=== PATIENT | female | born 2000 | race Caucasian/White ===

== ENCOUNTER 2022-03-16 01:27 | Observation (INO) | payer BC, SELFPAY ==
[2022-03-16 01:36] VITALS: BP 134/80; PULSE 89; RESP 18; TEMP 36.7; O2SAT 100
[2022-03-16 01:45] VITALS: BMI 19.0
--- NOTE | 2022-03-16 01:58 | PC.NURSE ---
This patient, Anabelle Castillo, was admitted to Medical Room 346-01. Patient/family oriented to hospital policies and general routines including ID bracelet, bed and alarms, visiting hours, pain management, procedures, bathroom and other care routines, personal items, smoking policy, room service/diet, and visiting hours. Information on how to activate the Rapid Response Team has been discussed. Patient/Family are encouraged to report perceived risks to care and to ask questions if they do not understand what they are told or what they should do.
[2022-03-16] MEDS: LACTATED RINGERS 1,000 ML 100 ML IV CONT ×3 (03:59→21:07)
[2022-03-16 05:03] VITALS: BP 99/69; PULSE 85; RESP 16; TEMP 36.8; O2SAT 100
[2022-03-16 05:46] LABS: Hematocrit 34.6 % (37.0-47.0); Hemoglobin 11.3 g/dL (12.0-15.0); Mean Corpuscular HGB Conc 32.7 g/dl (32-36); Mean Corpuscular Hemoglobin 28.7 pg (26-34); Mean Corpuscular Volume 87.8 fl (80-100); Mean Platelet Volume 10.1 fl (7.4-10.4); Platelet Count Result 258 k/mm3 (150-375); Red Blood Count 3.94 M/mm3 (4.2-5.4); Red Cell Distribution Width 11.7 % (11.5-14.5); White Blood Count 5.5 K/mm3 (4.5-10.0)
[2022-03-16 06:02] LABS: Anion Gap 9 mmol/L (8-16); Blood Urea Nitrogen 6 mg/dL (8-21); Calcium 8.3 mg/dL (8.9-10.7); Carbon Dioxide 23 mmol/L (22-30); Chloride 106 mmol/L (98-107); Estimated CRCL calculation 73 ml/min; Estimated Glomerular Filt Rate > 60; Glucose 99 mg/dL (65-110); Potassium 3.8 mmol/L (3.4-5.0); Sodium 138 mmol/L (134-143)
[2022-03-16 09:53] LABS: Beta HCG Quantitative < 2.39 mIU/ML
--- NOTE | 2022-03-16 10:46 | PM.IMHP ---
H&P: HPI History of Present Illness Date/Time: 03/16/22 10:46 Chief Complaint: Fever Narrative: This is a 21-year-old female who is otherwise healthy and presented to the ER in [place] for evaluation of a fever last night. She first noticed generalized abdominal cramping last Tuesday, 6 days ago. She also had a few episodes of diarrhea throughout the day. No vomiting. The cramping was persistent throughout the day, and ultimately brought her into the ER that night. She reportedly had labs drawn, but no imaging. She was discharged home and told there was no significant findings in her labs. The abdominal cramping improved the next day and ultimately resolved. Since then, she has had no abdominal pain. Over the past 3 days, she has noticed an intermittent low-grade fever with a T-max of a 100? F. She has been taking ibuprofen, which helps. She has been feeling overall unwell, but no specific complaints. Denies any other additional symptoms. Due to the fever, she came back for evaluation to [place] ER last night. Labs were unremarkable. CT scan of the abdomen and pelvis was performed and showed findings consistent with possible early/mild acute appendicitis. In review of her paper chart, the radiologist report suggests her appendix being dilated to 8-9 mm with an appendicolith and the appendix distal to the appendicolith is fluid-filled. No mention of inflammatory stranding. No evidence of perforation. This does report that the appendix is difficult to see and is located in the deep pelvis. There was also mention of possible colitis in the ascending colon. Our service was called from the ED provider and she was directly admitted to [facility] for surgical evaluation. She has been started on IV Zosyn. She had a negative urine test in the ER at the outlying facility. She is now seen on the medical floor. She denies any abdominal pain. She reports a mild headache and has some intermittent nausea, but she deals with nausea chronically. No vomiting. She has been afebrile since admission. Review of Systems Review of Systems: All systems reviewed & are unremarkable except as noted in HPI and below Constitutional: Constitutional: Reports as per HPI, Reports no additional constitutional complaints, Reports chills, Denies fatigue, Reports fever(s), Reports headache(s) and Reports poor appetite Eyes: Eyes: Reports no additional eye complaints ENT: Reports system reviewed and no additional complaints, except as documented and Reports Normal hearing present Cardiovascular: Cardiovascular: Reports no additional cardiovascular complaints, Denies chest pain and Denies leg edema Respiratory: Respiratory: Reports no additional respiratory complaints, Denies cough and Denies dyspnea Gastrointestinal: Gastrointestinal: Reports as per HPI, Reports no additional gastrointestinal complaints, Denies abdominal pain (not currently), Denies change in stool character, Reports GI cramping, Denies diarrhea, Reports nausea (chronic, no changes) and Denies vomiting Genitourinary: Genitourinary: Reports no additional female genitourinary complaints and Denies dysuria Musculoskeletal: Musculoskeletal: Reports no additional musculoskeletal complaints Integumentary/Breasts: Skin/Breast: Reports system reviewed and no additional complaints, except as docu Neurologic: Reports system reviewed and no additional complaints, except as documented, Denies dizziness, Denies focal weakness, Denies numbness and Denies tingling Psychiatric: Psychiatric: Reports no additional psychiatric complaints, Denies depression (treated for depression with hx of SI, no current SI), Denies homicidal ideation and Denies suicidal ideation PMFSH Past Medical History Medical History Depression Surgical History Surgical History No pertinent past surgica
[2022-03-16 14:00] VITALS: BP 108/58; PULSE 91; RESP 18; TEMP 36.4; O2SAT 99
[2022-03-16] MEDS: FLUoxetine HCL 20 MG CAPSULE 60 MG PO (17:22)
[2022-03-16 19:34] VITALS: BP 123/64; PULSE 98; RESP 16; TEMP 36.6; O2SAT 100
[2022-03-16 20:00] VITALS: PULSE 98; RESP 16; O2SAT 100
[2022-03-17 06:00] VITALS: BP 115/67; PULSE 79; RESP 18; TEMP 36.6; O2SAT 100
[2022-03-17 06:19] LABS: Basophils Percent Auto 0.6 % (0.2-1.2); Eosinophils Absolute Auto 0.1 K/mm3 (0-0.3); Eosinophils Percent Auto 1.4 % (0-4.4); Hematocrit 37.1 % (37.0-47.0); Hemoglobin 11.8 g/dL (12.0-15.0); Immature Granulocyte Absolute 0.01 K/mm3 (0.00-0.031); Immature Granulocyte Percent A 0.2 % (0-0.5); Lymphocytes Absolute Auto 2.29 K/mm3 (0.9-3.2); Lymphocytes Percent Auto 45.8 % (18.3-44.2); Mean Corpuscular HGB Conc 31.8 g/dl (32-36); Mean Corpuscular Hemoglobin 28.4 pg (26-34); Mean Corpuscular Volume 89.4 fl (80-100); Mean Platelet Volume 10.5 fl (7.4-10.4); Monocytes Absolute Auto 0.4 K/mm3 (0.1-0.6); Monocytes Percent Auto 7.4 % (2.6-8.5); Neutrophils Absolute Auto 2.2 K/mm3 (1.3-6.7); Neutrophils Percent Auto 44.6 % (45.5-73.1); Platelet Count Result 286 k/mm3 (150-375); Red Blood Count 4.15 M/mm3 (4.2-5.4); Red Cell Distribution Width 11.9 % (11.5-14.5)
--- NOTE | 2022-03-17 08:55 | PM.DS ---
DS: Admitting Diagnosis Discharge Date 03/17/2022 Admitting Diagnosis acute appendicitis DS: Discharge Diagnosis Discharge Diagnosis (1) Colitis: Code(s): K52.9 - Noninfective gastroenteritis and colitis, unspecified Status: Acute DS: Summary Hospital Course Reason for hospitalization: possible acute appendicitis Hospital Course: this is a 21-year-old woman who presented to [place] emergency department on 03/15/2022. She had presented initially 1 week prior with lower abdominal pain and diarrhea. No imaging was done at that time and she was sent home from the emergency department with instructions to return if symptoms worsened or she developed fevers. She was having some mild fevers on 03/14/2022 and 03/15/2022 and therefore presented back to the emergency department. Her abdominal pain had resolved and she was no longer having diarrhea. A CT of her abdomen and pelvis was obtained and this showed a mildly dilated appendix and appendicolith with no surrounding inflammation. No surgeons were available at [facility] and she was unable to be transferred to [facility]. She was then transferred to [facility] for further treatment. The CT was reviewed with our radiologist and the findings were inconclusive for appendicitis. There was actually some mild ascending colon wall thickening which would go along with the pain and diarrhea patient was having. Her labs were repeated and white blood count remained normal. Her pain had completely resolved and she had no tenderness on palpation or peritoneal signs. Her diet was advanced to regular diet and she remained afebrile throughout her stay. Follow-up labs on 03/17/2022 showed no evidence of elevated white blood count or other abnormalities. She was discharged on 03/17/2022. Status at Discharge Functional status at discharge: independent ambulation Overall status at discharge: patient is back to baseline Time Spent with Patient Time attestation: Total time spent providing and/or coordinating discharge services: Time spent: Less than 30 minutes Exam Const: General: cooperative and no acute distress Orientation/consciousness: patient oriented x3 Resp: Effort & Inspection: normal respiratory effort Auscultation: clear to auscultation bilaterally Cardio: Rate: regular rate Rhythm: regular rhythm Heart sounds: S1 normal heart sound present and S2 normal heart sound present GI: Inspection: non-distended GI Palp: Yes Soft to palpation, No Tenderness to palpation present (GI), No Guarding due to palpation present (GI) and No Rebound tenderness present Auscultation: normal bowel sounds DS: Data Data Completed and Pending Labs on day of discharge: Labs from last 24 hours 03/17/22 03/16/22 05:55 05:34 WBC 5.0 RBC 4.15 L Hgb 11.8 L Hct 37.1 MCV 89.4 MCH 28.4 MCHC 31.8 L RDW 11.9 Plt Count 286 MPV 10.5 H Immature Gran % (Auto) 0.2 Neut % (Auto) 44.6 L Lymph % (Auto) 45.8 H [place] % (Auto) 7.4 Eos % (Auto) 1.4 Baso % (Auto) 0.6 Lymph # (Auto) 2.29 [place] # (Auto) 0.4 Eos # (Auto) 0.1 Baso # (Auto) 0.0 Abs Immat Gran (auto) 0.01 Absolute Neuts (auto) 2.2 Absolute Nucleated RBC 0.0 Nucleated RBC % 0.0 Beta HCG, Quant < 2.39 Discharge Plan Discharge Attending physician on discharge: Almas Hector Discharging Clinician: Almas Hector Anticipated Discharge Date/Time: 03/17/22 09:01 Patient Disposition: Home, Self-Care Activity: unlimited Diet: regular Patient Instructions: Antibiotic Form Stand Alone Forms: General Discharge Information Follow-up/Referrals: UNKNOWN,DOCTOR [Primary Care Provider] - Follow Up with Primary Dr ( Follow-up with primary care doctor) Discharge Medications: Continued fluoxetine 60 mg Tablet 60 mg PO DAILY Date of admission: 03/16/22 01:27 Primary Care Provider: UNKNOWN,DOCTOR Admitting Provider: Tawny
[2022-03-17] MEDS: FLUoxetine HCL 20 MG CAPSULE 60 MG PO (09:02)
== END 2022-03-17 14:15 | disposition home or self-care (01) ==
PROVIDERS: Anesthesiology; Nurse Practitioner Family; Admitting Provider Surgery; Visit Provider Surgery
DX: K52.9 Noninfective gastroenteritis and colitis, unspecified (principal); Z79.899 Other long term (current) drug therapy; F32.A Depression, unspecified
CPT/HCPCS: 36415; 80048; 84702; 85025; 85027; 96361; 96365; 96366; 96376; A9270; G0378; J2543; J7120

== ENCOUNTER 2023-05-25 07:04 | Emergency (ER) | payer OTHER, SELFPAY ==
[2023-05-25 07:13] VITALS: BP 101/69; PULSE 99; RESP 16; TEMP 37; O2SAT 99
[2023-05-25 08:13] LABS: Strep Group A RT-PCR NOT DETECTED (Negative)
[2023-05-25] MEDS: KETOROLAC 30 MG/ML VIAL (*BKC) IM (08:28)
[2023-05-25 08:59] LABS: Influenza A QL RT-PCR Negative (Negative); Influenza B QL RT-PCR Negative (Negative); SARS-CoV-2 RNA PCR Negative (Negative)
--- NOTE | 2023-05-25 09:50 | ED.URI ---
HPI - URI/Sore Throat General Chief Complaint: Upper Respiratory Infection Stated Complaint: Throat hurts and cannot swallow anymore Time Seen by Provider: 05/25/23 07:36 Source: patient and RN notes reviewed Mode of arrival: ambulatory Limitations: no limitations History of Present Illness HPI Narrative: This is a 22 year old female who presents for evaluation of sore throat. Patient states yesterday she developed painful swallowing. She took tylenol last night for her pain without relief. She denies fever, chills. She reports mild cough. She denies sick contacts. Related Data Home Medications Medication Instructions Recorded Confirmed fluoxetine 60 mg tablet 60 mg PO DAILY 03/16/22 03/16/22 Allergies Allergy/AdvReac Type Severity Reaction Status Date / Time bacitracin Allergy Rash Verified 05/25/23 07:15 [From Neosporin ([id number])] neomycin Allergy Rash Verified 05/25/23 07:15 [From Neosporin ([id number])] polymyxin B Allergy Rash Verified 05/25/23 07:15 [From Neosporin ([id number])] Review of Systems Review of Systems: All systems reviewed & are unremarkable except as noted in HPI and below PMFSH Past Medical History Medical History Depression Surgical History Surgical History No pertinent past surgical history Family History Family History Other No pertinent family history Social History Social History Smoking status: Never smoker Alcohol intake: never Substance use: former Occupation/Education: occupation Additional occupation/education comments: [employer] Spiritual care concerns: No Exam Const: General: no acute distress and alert Nutritional Appearance: well nourished Orientation/consciousness: patient oriented x3 HENMT: Head: normal to inspection Ears: external ears normal and TM's normal bilaterally Face/Nose/Sinus: Normal external nose present Face and sinus: normal facial exam and sinuses nontender Mouth: Yes lip normal and Yes moist mucous membranes Throat: uvula midline Other: mild edema and erythema to uvula Eyes: EOM: EOMs intact bilaterally Neck: Neck: lymphadenopathy Chest: Chest palpation & inspection: normal inspection of the chest Resp: Effort & Inspection: normal respiratory effort Auscultation: clear to auscultation bilaterally Cardio: Rate: regular rate Rhythm: regular rhythm Heart sounds: no murmurs GI: GI Palp: Yes Soft to palpation, No Tenderness to palpation present (GI), No Guarding due to palpation present (GI) and No Rigid due to palpation Auscultation: normal bowel sounds Skin: General skin exam: normal color Rashes: no rashes Wounds: no wounds Neuro: General: patient oriented x3, moves all extremities and CN's II-XI intact bilaterally Extrem: General: normal to inspection Psych: Mental Status: mental status grossly normal Affect: normal affect Attitude: cooperative Course Reevaluation(s) Reevaluation #1: I Discussed with patient that test are unremarkable. She will be treated for uvulitis. She was given dose of decadron in ER 10 mg IM and toradol 30 mg IM for pain. Date: 05/25/23 Time: 10:16 Vital Signs Vital signs: Vital Signs Temperature 98.6 F 05/25/23 07:13 Pulse Rate 99 05/25/23 07:13 Respiratory Rate 16 05/25/23 07:13 Blood Pressure 101/69 05/25/23 07:13 Pulse Oximetry 99 05/25/23 07:13 Temperature 98.6 F 05/25/23 07:13 Pulse Rate 99 05/25/23 07:13 Respiratory Rate 16 05/25/23 07:13 Blood Pressure 101/69 05/25/23 07:13 Pulse Oximetry 99 05/25/23 07:13 MDM - URI/Sore Throat Differential Diagnosis Differential diagnosis: Likely upper respiratory infection, viral infection, influenza, phary
[2023-05-25 10:07] LABS: Monoscreen Negative (Negative); Negative Monotest Control Negative (Negative); Positive Monotest Control Positive (Positive)
== END 2023-05-25 10:27 | disposition home or self-care (01) ==
PROVIDERS: Emergency Provider General Practice
DX: J02.9 Acute pharyngitis, unspecified (principal); Z20.822 Contact with and (suspected) exposure to COVID-19; F32.A Depression, unspecified
CPT/HCPCS: 36415; 86308; 87636; 87651; 96372; 99284; J1100; J1885

== ENCOUNTER 2024-07-14 17:41 | Observation (INO) | payer OTHER, SELFPAY ==
--- NOTE | ~2024-07-14 | US_ITS ---
EXAMINATION: US transvaginal DATE: 07/14/2024 22:33 INDICATION: Low abdominal pain. TECHNIQUE: Multiple transvaginal sonographic images of the pelvis were obtained. COMPARISON: CT abdomen and pelvis 07/14/2024 FINDINGS: The uterus measures 6.7 x 4.5 x 4.0 cm. There is physiologic free fluid in the pelvis. The endometria l complex measures 5 mm in thickness. The right ovary measures 4.0 x 2.5 x 2.7 cm. There is a 2.4 cm dominant follicle in the right ovary. The left ovary measures 2.8 x 1.9 x 2.2 cm. There is normal vas cular flow in the ovaries. IMPRESSION: 1. Normal pelvis. Reviewed, dictated and finalized at location A. ING DIE SINKER IMPRESSION: 1. Normal pelvis.
--- NOTE | ~2024-07-14 | CT_ITS ---
EXAMINATION: CT abdomen pelvis w con DATE: 07/14/2024 22:33 INDICATION: Generalized abdominal pain. TECHNIQUE: Computed tomography (CT) of the abdomen and pelvis was performed with 100 mL Omnipaque 350 intravenous contrast. Automated exposure control and iterative reconstruction technique were employe d. The dose-length product was 262.17 mGy-cm. COMPARISON: CT abdomen and pelvis 03/15/2022 FINDINGS: The visualized portions of the lung bases are clear without pneumonia or pleural effusion. The heart size is normal. No pericardial effusion. The liver, gallbladder, spleen, pancreas, adrenal glands, and kidneys are normal. There are no dilated loops of bowel. The appendix is fluid-filled and dilated to 11 mm. 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 There are no pathologically enla rged lymph nodes. There is no free intraperitoneal fluid. There is mild lumbar spondylosis. IMPRESSION: 1. Dilatation of the appendix to 11 mm, increased from 9 mm on 03/15/2022. This finding is suspicious f or appendicitis. Reviewed, dictated and finalized at location A. 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 Dilatation of the appendix to 11 mm, increased from 9 mm on 03/15/2022. This f inding is suspicious for appendicitis.
[2024-07-14 17:43] VITALS: BP 119/68; PULSE 82; RESP 17; TEMP 36.3; O2SAT 100
--- NOTE | 2024-07-14 21:03 | ED_ITS ---
HPI - Abdominal Pain General Chief Complaint: Abdominal Pain <KATIE Pereyra Last Filed: 07/15/24 01:05> Stated Complaint: abd pain <KATIE Pereyra Last Filed: 07/15/24 01:05> Time Seen by Provider: 07/14/24 20:57 <KATIE Pereyra Last Filed: 07/15/24 01:05> History of Present Illness HPI narrative: 23-year-old female presents to the emergency department for diffuse abdominal pain for 1 day. Patient states the pain started yesterday is persisted today which prompted her to come to the ED. She describes the pain as a cramp, more significant in the lower abdomen. She is unable to identify any aggravating or alleviating factors. She denies nausea vomiting, diarrhea, dysuria or hematuria. No prior abdominal surgeries. She does endorse a history of similar events but is never lasted this long. LMP 1 week ago. No prior abdominal surgeries. Deneis vaginal discharge or concern for STDs. <KATIE Pereyra Last Filed: 07/15/24 01:05> Related Data Home Medications: Home Medications Medication Instructions Recorded Confirmed fluoxetine 60 mg tablet 60 mg PO HS 03/16/22 07/15/24 metoprolol tartrate 25 mg tablet 25 mg PO BID 07/15/24 07/15/24 <KATIE Pereyra Last Filed: 07/15/24 01:05> Allergies/Adverse Reactions: Allergies Allergy/AdvReac Type Severity Reaction Status Date / Time bacitracin Allergy Rash Verified 07/14/24 17:43 [From Neosporin ([id number])] neomycin Allergy Rash Verified 07/14/24 17:43 [From Neosporin ([id number])] polymyxin B Allergy Rash Verified 07/14/24 17:43 [From Neosporin ([id number])] <KATIE Pereyra Last Filed: 07/15/24 01:05> Review of Systems Review of Systems: All systems reviewed & are unremarkable except as noted in HPI and below <KATIE Pereyra Last Filed: 07/15/24 01:05> PMFSH Past Medical History Medical History: Medical History Depression <Yris Carrasco PA-C - Last Filed: 07/15/24 01:05> Surgical History Surgical History: Surgical History No pertinent past surgical history <Yris Carrasco PA-C - Last Filed: 07/15/24 01:05> Family History Family History: Family History (Updated 07/15/24 @ 02:06 by Neptali Bugros RN) Sibling Diabetes mellitus Father Mary-Danlos disease <Yris Carrasco PA-C - Last Filed: 07/15/24 01:05> Social History Social History: Social History Smoking status: Never smoker Alcohol intake: never Substance use: never Do You Feel Safe in your Home?: Yes Lack of Transportation: No Lack of Food: Never True Current Housing: I Have Housing Concerned About Future Housing: No Difficulty Paying Gas/Electric Bills: No Difficulty Paying for Meds: No Currently Unemployed: No Education: High School Diploma/GED Difficulty w/ Childcare or Family Care: No Occupation/Education: occupation Additional occupation/education comments: [employer] Spiritual care concerns: No <Yris Carrasco PA-C - Last Filed: 07/15/24 01:05> Exam Narrative: GENERAL: Well-appearing, well-nourished, and in no acute distress. HEAD: Normocephalic, atraumatic. EYES: EOMI. ENT: Nares clear, no rhinorrhea or epistaxis. Mucous membranes moist. NECK: Supple. CHEST: Clear to auscultation. No respiratory distress. HEART: Regular rate and rhythm. No murmur heard. Normal peripheral pulses. ABDOMEN: Normoactive bowel sounds. Abdomen soft with diffuse tenderness, most notably in the left lower quadrant, right lower quadrant and suprapubic region. No rebound or rigidity. No CVA tenderness. EXTREMITIES: Normal range of motion. No edema. SKIN: Warm, dry, no rash. NEURO: Alert and oriented x3. <Yris Carrasco PA-C - Last Filed: 07/15/24 01:05> Course [employer]/PA Physician Supervision Patient's HPI, Exam, and MDM were reviewed and I agreed with the workup and disposition done in the emergency department by the MLP. I was available for consultation and did independently evaluate the patient and patient's imaging studies and concern for acute appendicitis based on her right lower quadrant abdominal examination. She remained hemodynamically stable here in the emergency department. General surgery was consulted and agreeable to admission at this time with IV antibiotics. Patient was re-evaluated frequently and remained stable here in the emergency department with improvement her pain after medications. Patient is agreeable for admission at this time. Please refer to MLP dictation for remaining care course. <Austin Odell MD - Last Filed: 07/15/24 07:21> Vital Signs Vital signs: Vital Signs Temperature 36.3 C L 07/14/24 17:43 Pulse Rate 82 07/14/24 17:43 Respiratory Rate 17 07/14/24 17:43 Blood Pressure 119/68 07/14/24 17:43 Pulse Oximetry 100 07/14/24 17:43 Oxygen Delivery Room Air 07/14/24 17:43 Temperature 36.8 C 07/15/24 06:09 Pulse Rate 78 07/15/24 06:09 Respiratory Rate 16 07/15/24 06:09 Blood Pressure 105/76 07/15/24 06:09 Pulse Oximetry 100 07/15/24 06:09 Oxygen Delivery Room Air 07/14/24 17:43 <Yris Carrasco PA-C - Last Filed: 07/15/24 01:05> Vital Signs Temperature 36.3 C L 07/14/24 17:43 Pulse Rate 82 07/14/24 17:43 Respiratory Rate 17 07/14/24 17:43 Blood Pressure 119/68 07/14/24 17:43 Pulse Oximetry 100 07/14/24 17:43 Oxygen Delivery Room Air 07/14/24 17:43 Temperature 36.8 C 07/15/24 06:09 Pulse Rate 78 07/15/24 06:09 Respiratory Rate 16 07/15/24 06:09 Blood Pressure 105/76 07/15/24 06:09 Pulse Oximetry 100 07/15/24 06:09 Oxygen Delivery Room Air 07/14/24 17:43 <Austin Odell MD - Last Filed: 07/15/24 07:21> MDM - Abdominal Pain MDM Narrative Medical decision making narrative: 23-year-old female presents emergency department for diffuse abdominal cramping for the past day. See HPI for further history. Triage vitals are stable. Patient is afebrile and well appearing on exam. She is resting comfortably in the exam bed. Exam is significant for normoactive bowel sounds and diffuse abdominal tenderness, most notably in the lower abdomen. CBC shows no leukocytosis or anemia. Chemistries are unremarkable. UA with trace ketones and 1+ bacteria, no wbc's or nitrates. Lipase is normal. is negative. pelvic ultrasound shows no evidence of ovarian torsion and no adnexal abnormality with small pelvic free fluid. There is a right ovarian 2.[address] abdomen pelvis shows a dilated appendix of 1.1 cm with mild periappendiceal of edema/ inflammation which may reflect early acute appendicitis. she received Toradol with improvement. Discussed case with surgeon on-call, Dr. Macedo, who agrees to admission to his service. Patient started on Zosyn in the ED and made NPO. She is agreeable to admission. <Yris Carrasco PA-C - Last Filed: 07/15/24 01:05> Medical Records Attestation: I reviewed the patient's medical records. <Austin Odell MD - Last Filed: 07/15/24 07:21> Lab Data Attestation: I reviewed the patient's lab results. <Austin Odell MD - Last Filed: 07/15/24 07:21> Result diagrams: 07/14/24 21:09 07/14/24 21:09 <Yris Carrasco PA-C - Last Filed: 07/15/24 01:05> Labs: Lab Results 07/14/24 Range/Units 21:09 WBC 9.9 (4.5-10.0) K/mm3 RBC 4.17 L (4.2-5.4) M/mm3 Hgb 12.4 (12.0-15.0) g/dL Hct 37.2 (37.0-47.0) % MCV 89.2 (80-100) fl MCH 29.7 (26-34) pg MCHC 33.3 (32-36) g/dl RDW 11.7 (11.5-14.5) % Plt Count 293 (150-375) k/mm3 MPV 10.2 (7.4-10.4) fl Immature Gran % (Auto) 0.2 (0-0.5) % Neut % (Auto) 73.5 H (45.5-73.1) % Lymph % (Auto) 18.9 (18.3-44.2) % [place] % (Auto) 6.3 (2.6-8.5) % Eos % (Auto) 0.7 (0-4.4) % Baso % (Auto) 0.4 (0.2-1.2) % Lymph # (Auto) 1.86 (0.9-3.2) K/mm3 [place] # (Auto) 0.6 (0.1-0.6) K/mm3 Eos # (Auto) 0.1 (0-0.3) K/mm3 Baso # (Auto) 0.0 (0.0-0.1) K/mm3 Abs Immat Gran (auto) 0.02 (0.00-0.031) K/mm3 Absolute Neuts (auto) 7.3 H (1.3-6.7) K/mm3 Absolute Nucleated RBC 0.000 (0.0-0.012) K/mm3 Nucleated RBC % 0.0 (0.0-0.2) % Sodium 139 (137-145) mmol/L Potassium 3.6 (3.4-5.0) mmol/L Chloride 105 (98-107) mmol/L Carbon Dioxide 27 (22-30) mmol/L Anion Gap 7 (4-12) mmol/L BUN 9 (7-17) mg/dL Creatinine 0.60 L (0.7-1.0) mg/dL Estim Creat Clear Calc 104 ml/min Estimated GFR > 60 (59 - ) Glucose 90 (65-110) mg/dL Calcium 9.0 (8.4-10.2) mg/dL Total Bilirubin 0.5 (0.2-1.3) mg/dL AST 26 (14-36) U/L ALT 27 (6-35) U/L Alkaline Phosphatase 85 (38-126) U/L Total Protein 8.0 (6.3-8.2) g/dL Albumin 4.8 (3.5-5.1) g/dL Lipase 47 (23-300) U/L Urine Color Yellow (Yellow) Urine Appearance Clear (Clear) Urine pH 6.5 (5.0-9.0) Ur Specific [place] 1.032 (1.001-1.035) Urine Protein Trace (Negative) mg/dL Urine Glucose (UA) Negative (Negative) mg/dL Urine Ketones Trace H (Negative) mg/dL Ur Blood (Man) Negative (Negative) Urine Nitrate Negative (Negative) Urine Bilirubin Negative (Negative) Urine Urobilinogen 1.0 (<2.0) mg/dL Leukocyte Esterase Rfl Negative (Negative) ANN/UL Urine RBC 0-2 (0-2) /hpf Urine WBC 0-5 (0-3) /hpf Ur Squamous Epith Cells Occasional (Few) /hpf Urine Bacteria 1+ H /hpf Urine Casts 0-2 Urine Test Negative <Yris Carrasco PA-C - Last Filed: 07/15/24 01:05> Lab Results 07/14/24 Range/Units 21:09 WBC 9.9 (4.5-10.0) K/mm3 RBC 4.17 L (4.2-5.4) M/mm3 Hgb 12.4 (12.0-15.0) g/dL Hct 37.2 (37.0-47.0) % MCV 89.2 (80-100) fl MCH 29.7 (26-34) pg MCHC 33.3 (32-36) g/dl RDW 11.7 (11.5-14.5) % Plt Count 293 (150-375) k/mm3 MPV 10.2 (7.4-10.4) fl Immature Gran % (Auto) 0.2 (0-0.5) % Neut % (Auto) 73.5 H (45.5-73.1) % Lymph % (Auto) 18.9 (18.3-44.2) % [place] % (Auto) 6.3 (2.6-8.5) % Eos % (Auto) 0.7 (0-4.4) % Baso % (Auto) 0.4 (0.2-1.2) % Lymph # (Auto) 1.86 (0.9-3.2) K/mm3 [place] # (Auto) 0.6 (0.1-0.6) K/mm3 Eos # (Auto) 0.1 (0-0.3) K/mm3 Baso # (Auto) 0.0 (0.0-0.1) K/mm3 Abs Immat Gran (auto) 0.02 (0.00-0.031) K/mm3 Absolute Neuts (auto) 7.3 H (1.3-6.7) K/mm3 Absolute Nucleated RBC 0.000 (0.0-0.012) K/mm3 Nucleated RBC % 0.0 (0.0-0.2) % Sodium 139 (137-145) mmol/L Potassium 3.6 (3.4-5.0) mmol/L Chloride 105 (98-107) mmol/L Carbon Dioxide 27 (22-30) mmol/L Anion Gap 7 (4-12) mmol/L BUN 9 (7-17) mg/dL Creatinine 0.60 L (0.7-1.0) mg/dL Estim Creat Clear Calc 104 ml/min Estimated GFR > 60 (59 - ) Glucose 90 (65-110) mg/dL Calcium 9.0 (8.4-10.2) mg/dL Total Bilirubin 0.5 (0.2-1.3) mg/dL AST 26 (14-36) U/L ALT 27 (6-35) U/L Alkaline Phosphatase 85 (38-126) U/L Total Protein 8.0 (6.3-8.2) g/dL Albumin 4.8 (3.5-5.1) g/dL Lipase 47 (23-300) U/L Urine Color Yellow (Yellow) Urine Appearance Clear (Clear) Urine pH 6.5 (5.0-9.0) Ur Specific [place] 1.032 (1.001-1.035) Urine Protein Trace (Negative) mg/dL Urine Glucose (UA) Negative (Negative) mg/dL Urine Ketones Trace H (Negative) mg/dL Ur Blood (Man) Negative (Negative) Urine Nitrate Negative (Negative) Urine Bilirubin Negative (Negative) Urine Urobilinogen 1.0 (<2.0) mg/dL Leukocyte Esterase Rfl Negative (Negative) ANN/UL Urine RBC 0-2 (0-2) /hpf Urine WBC 0-5 (0-3) /hpf Ur Squamous Epith Cells Occasional (Few) /hpf Urine Bacteria 1+ H /hpf Urine Casts 0-2 Urine Test Negative <Austin Odell MD - Last Filed: 07/15/24 07:21> Imaging Data Attestation: I personally reviewed and interpreted this imaging study as follows: <Austin Odell MD - Last Filed: 07/15/24 07:21> Discharge Plan Discharge Clinical Impression: Cyst of right ovary Acute appendicitis Qualifiers: Acute appendicitis type: unspecified acute appendicitis type Qualified Code(s): K35.80 - Unspecified acute appendicitis <Yris Carrasco PA-C - Last Filed: 07/15/24 01:05> Patient Disposition: Still a Patient <Yris Carrasco PA-C - Last Filed: 07/15/24 01:05> Condition: Stable <Yris Carrasco PA-C - Last Filed: 07/15/24 01:05>
[2024-07-14 21:21] LABS: Basophils Percent Auto 0.4 % (0.2-1.2); Eosinophils Absolute Auto 0.1 K/mm3 (0-0.3); Eosinophils Percent Auto 0.7 % (0-4.4); Hematocrit 37.2 % (37.0-47.0); Hemoglobin 12.4 g/dL (12.0-15.0); Immature Granulocyte Absolute 0.02 K/mm3 (0.00-0.031); Immature Granulocyte Percent A 0.2 % (0-0.5); Lymphocytes Absolute Auto 1.86 K/mm3 (0.9-3.2); Lymphocytes Percent Auto 18.9 % (18.3-44.2); Mean Corpuscular HGB Conc 33.3 g/dl (32-36); Mean Corpuscular Hemoglobin 29.7 pg (26-34); Mean Corpuscular Volume 89.2 fl (80-100); Mean Platelet Volume 10.2 fl (7.4-10.4); Monocytes Absolute Auto 0.6 K/mm3 (0.1-0.6); Monocytes Percent Auto 6.3 % (2.6-8.5); Neutrophils Absolute Auto 7.3 K/mm3 (1.3-6.7); Neutrophils Percent Auto 73.5 % (45.5-73.1); Platelet Count Result 293 k/mm3 (150-375); Red Blood Count 4.17 M/mm3 (4.2-5.4); Red Cell Distribution Width 11.7 % (11.5-14.5); White Blood Count 9.9 K/mm3 (4.5-10.0)
[2024-07-14 21:27] LABS: Add Urine Microscopic? YES; Appearance Urine Clear (Clear); Bacteria Urine 1+ /hpf; Bilirubin Urine Negative (Negative); Blood Urine Negative (Negative); Color Urine Yellow (Yellow); Glucose Urine UA Negative (Negative); Ketones Urine Trace mg/dL (Negative); Leukocyte Esterase Ur Negative LEU/UL (Negative); Nitrate Urine Negative (Negative); Non Pathogenic Casts 0-2; Protein Urine Trace mg/dL (Negative); RBC Urine 0-2 /hpf (0-2); Specific Grav Ur 1.032 (1.001-1.035); Squamous Epithelial Cell Urine Occasional /hpf (Few); WBC Urine 0-5 /hpf (0-3); pH Urine 6.5 (5.0-9.0)
--- NOTE | 2024-07-14 21:28 | PC.NURSE ---
order placed for Urine HCG, RN called Lab at this time.
[2024-07-14 21:34] LABS: Alanine Aminotransferase 27 U/L (6-35); Albumin Level 4.8 g/dL (3.5-5.1); Alkaline Phosphatase 85 U/L (38-126); Anion Gap 7 mmol/L (4-12); Aspartate Amino Transferase 26 U/L (14-36); Bilirubin,Total 0.5 mg/dL (0.2-1.3); Blood Urea Nitrogen 9 mg/dL (7-17); Carbon Dioxide 27 mmol/L (22-30); Chloride 105 mmol/L (98-107); Estimated CRCL calculation 104 ml/min; Estimated Glomerular Filt Rate > 60; Glucose 90 mg/dL (65-110); Lipase 47 U/L (23-300); Potassium 3.6 mmol/L (3.4-5.0); Sodium 139 mmol/L (137-145)
[2024-07-14 21:58] LABS: Pregnancy On Board Control Positive; Urine Pregnancy Test Negative
[2024-07-14] MEDS: KETOROLAC 15 MG/ML VIAL (*BKC) IV PUSH (23:50)
[2024-07-14 23:51] VITALS: BP 109/59; PULSE 91; RESP 13; O2SAT 100
[2024-07-15] VITALS (11 sets, daily range): BP systolic 88–116; BP diastolic 40–77; PULSE 78–115; RESP 9–18; TEMP 36–36.8; O2SAT 95–100; BMI 24.7
[2024-07-15] MEDS: SODIUM CHLORIDE 0.9% IV 1,000 ML 125 ML IV CONT (01:12)
[2024-07-15] MEDS: PIPERACILLN/TAZ 3.375GM/NS50ML 3.375 GM/50 ML BAG IVPB ×3 (01:13→12:15)
--- NOTE | 2024-07-15 01:20 | PC.NURSE ---
This patient is well developed and is being admitted to [facility] for inflammation around the appendix. Patient is receiving Piperacillin and Normal Saline at 125 ml/hr. Patient denies any pain at this time. Vitals are 116/77, HR 82, O2 100, RR 18.
[2024-07-15] MEDS: ACETAMINOPHEN 325 MG TABLET 650 MG PO (02:47)
--- NOTE | 2024-07-15 09:26 | PM.IMHP ---
H&P: HPI History of Present Illness Date/Time: 07/15/24 09:26 Chief Complaint: Acute appendicitis Narrative: Patient is a 23-year-old female presents to the emergency room last evening. Had pain in the lower abdomen the pelvis for about 1 to 2 days prior to presentation. Two years ago she was transferred from [facility] to [facility] was seen by Dr. Hector for similar type pain. At that time a CT scan showed a appendix which was minimally dilated with an appendicolith but no evidence of appendiceal inflammation. Apparently was also some very subtle changes of ascending colitis and she was treated medically for that condition and did not undergo an appendectomy. On this presentation CT scan again shows a dilated appendix with some periappendiceal inflammation but no abscess or perforation. An appendicolith is still seen in the appendix. White blood cell count is normal. She does have a right ovarian cyst. Review of Systems Review of Systems: The remainder of the review of systems to include constitutional, HEENT, cardiovascular, respiratory, GI, , integumentary, musculoskeletal, endocrine, immunologic, hematologic, psychiatric, and neurologic are all negative except for which is mentioned above in the HPI. [facility] Past Medical History Medical History Depression Surgical History Surgical History No pertinent past surgical history Family History Family History Sibling Diabetes mellitus Father Mary-Danlos disease Social History Social History Smoking status: Never smoker Alcohol intake: never Substance use: never Do You Feel Safe in your Home?: Yes Lack of Transportation: No Lack of Food: Never True Current Housing: I Have Housing Concerned About Future Housing: No Difficulty Paying Gas/Electric Bills: No Difficulty Paying for Meds: No Currently Unemployed: No Education: High School Diploma/GED Difficulty w/ Childcare or Family Care: No Occupation/Education: occupation Additional occupation/education comments: [employer] Spiritual care concerns: No Meds Home Medications and Allergies Home Medications Medication Instructions Recorded Confirmed Type fluoxetine 60 mg tablet 60 mg PO HS 03/16/22 07/15/24 History metoprolol tartrate 25 mg tablet 25 mg PO BID 07/15/24 07/15/24 History Allergies Allergy/AdvReac Type Severity Reaction Status Date / Time bacitracin Allergy Rash Verified 07/14/24 17:43 [From Neosporin ([id number])] neomycin Allergy Rash Verified 07/14/24 17:43 [From Neosporin ([id number])] polymyxin B Allergy Rash Verified 07/14/24 17:43 [From Neosporin ([id number])] Vital Signs Vital Signs - 24 hr 07/14/24 17:43 07/14/24 23:51 07/15/24 01:22 Temperature 36.3 C L Pulse Rate 82 91 87 Respiratory Rate 17 13 18 Blood Pressure 119/68 109/59 L 116/77 Pulse Oximetry 100 100 100 Oxygen Delivery Room Air 07/15/24 01:45 07/15/24 06:09 07/15/24 01:56 Temperature 36.8 C 36.8 C 36.8 C Pulse Rate 80 78 80 Respiratory Rate 16 16 16 Blood Pressure 109/74 105/76 109/74 Pulse Oximetry 100 100 Oxygen Delivery Exam Const: General: comfortable and no acute distress HENMT: Ears: TM's normal bilaterally Face/Nose/Sinus: Normal nares present Mouth: Yes moist mucous membranes Eyes: General: appearance normal, both eyes and all related structures Sclera: sclerae normal Pupils: Equal, round and reactive pupils present EOM: EOMs intact bilaterally Neck: Neck: supple and no JVD Resp: Effort & Inspection: normal respiratory effort Auscultation: clear to auscultation bilaterally Cardio: Rate: regular rate Rhythm: regular rhythm GI: Other: Abdomen is soft and nondistended. Minimal tenderness in the right lower quadrant the abdomen. Moderate tenderness to palpation in the suprapubic region. The appendix is seen in the mid pelvis on CT scan which would correlate with the tenderness on exam. No ventral hernias no masses. Skin: General skin exam: normal color and no rashes or lesions noted Neuro: General: gait normal Speech: normal speech Motor exam (neuro): 5/5 motor strength present throughout Sensory Exam: normal sensation Extrem: General: normal to inspection Psych: Mental Status: mental status grossly normal Affect: normal affect H&P: Results Labs Labs: Short CBC 07/14/24 Range/Units 21:09 WBC 9.9 (4.5-10.0) K/mm3 Hgb 12.4 (12.0-15.0) g/dL Hct 37.2 (37.0-47.0) % Plt Count 293 (150-375) k/mm3 BMP 07/14/24 21:09 Sodium 139 Potassium 3.6 Chloride 105 Carbon Dioxide 27 BUN 9 Creatinine 0.60 L Glucose 90 Calcium 9.0 Liver Function 07/14/24 Range/Units 21:09 Total Bilirubin 0.5 (0.2-1.3) mg/dL AST 26 (14-36) U/L ALT 27 (6-35) U/L Alkaline Phosphatase 85 (38-126) U/L Albumin 4.8 (3.5-5.1) g/dL Urine 07/14/24 Range/Units 21:09 Urine Color Yellow (Yellow) Urine Appearance Clear (Clear) Urine pH 6.5 (5.0-9.0) Ur Specific [place] 1.032 (1.001-1.035) Urine Protein Trace (Negative) mg/dL Urine Glucose (UA) Negative (Negative) mg/dL Imaging CT scan - abdomen: Radiologist's impression: CT Scan Report Signed Patient: Anabelle Castillo : 2000 MR#: [id number] Age: 23 Acct:[id number] Loc: [id number] 341-01 ADM Date: 07/15/24Attending Dr: Emeka Macedo M.D. Ordering Physician: Yris Carrasco PA-C Date of Service: 07/14/24 Procedure(s): CT abdomen pelvis w con Accession Number(s): [id number] cc: Yris Carrasco PA-C; UNKNOWN,DOCTOR; Emeka Macedo MD~ EXAMINATION: CT abdomen pelvis w con DATE: 07/14/2024 22:33 INDICATION: Generalized abdominal pain. TECHNIQUE: Computed tomography (CT) of the abdomen and pelvis was performed with 100 mL Omnipaque 350 intravenous contrast. Automated exposure control and iterative reconstruction technique were employed. The dose-length product was 262.17 mGy-cm. COMPARISON: CT abdomen and pelvis 03/15/2022 FINDINGS: The visualized portions of the lung bases are clear without pneumonia or pleural effusion. The heart size is normal. No pericardial effusion. The liver, gallbladder, spleen, pancreas, adrenal glands, and kidneys are normal. There are no dilated loops of bowel. The appendix is fluid-filled and dilated to 11 mm. 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 There are no pathologically enlarged lymph nodes. There is no free intraperitoneal fluid. There is mild lumbar spondylosis. IMPRESSION: 1. Dilatation of the appendix to 11 mm, increased from 9 mm on 03/15/2022. This finding is suspicious for appendicitis. Reviewed, dictated and finalized at location A. 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 He has a chronic appendicoliths and her appendix which was dilated 9mm 2 years ago and is now 11mm now. She has 5 fluid-filled appendix with some very subtle periappendiceal inflammation. I discussed with the patient that she could have symptoms of more for chronic appendicitis versus a more acute on chronic type of situation. Option of treatment with IV antibiotics and non operative management was discussed with her and she wishes to proceed with appendix this time. We will proceed with a laparoscopic appendectomy possible open today in the operating room urgently. Risks, benefits, indications, and expected outcomes were discussed in detail with the patient and/or family. They understand and I have answered all other questions. They wished to proceed with surgery as outlined above. Continue IV antibiotics for now and continue NPO.
--- NOTE | 2024-07-15 09:34 | WPDHPUPDATE1 ---
History and Physical Update Update Date/Time: 07/15/24 09:34 History and Physical has been reviewed, including an updated exam of the patient. There are NO changes in the patient's condition. Risks, benefits, and alternatives have been discussed and questions answered. Patient agrees to proceed with procedure.
--- NOTE | 2024-07-15 10:53 | P.PNAN_ITS ---
Anes - Initial Pre Proc Eval Procedure: Operation Date: 07/15/24 11:00 Proposed Procedures p Laparoscopic Appendectomy - Emeka Macedo MD Date/Time: 07/15/24 10:53 Surgeon: Emeka Macedo MD Pre Op Diagnosis: Acute appendicitis Patient Data Age: 23 Gender: F Height: 1.6 m Weight: 63.4 kg Last Vital Signs Temp 36.8 C 07/15/24 06:09 Pulse 78 07/15/24 06:09 Resp 16 07/15/24 06:09 BP 105/76 07/15/24 06:09 Pulse Ox 100 07/15/24 06:09 O2 Del Method Room Air 07/14/24 17:43 Allergies Allergy/AdvReac Type Severity Reaction Status Date / Time bacitracin Allergy Rash Verified 07/14/24 17:43 [From Neosporin ([id number])] neomycin Allergy Rash Verified 07/14/24 17:43 [From Neosporin ([id number])] polymyxin B Allergy Rash Verified 07/14/24 17:43 [From Neosporin ([id number])] Home Medications Medication Instructions Recorded Confirmed Type fluoxetine 60 mg tablet 60 mg PO HS 03/16/22 07/15/24 History metoprolol tartrate 25 mg tablet 25 mg PO BID 07/15/24 07/15/24 History Laboratory Tests 07/14/24 21:09 WBC 9.9 K/mm3 (4.5-10.0) RBC 4.17 L M/mm3 (4.2-5.4) Hgb 12.4 g/dL (12.0-15.0) Hct 37.2 % (37.0-47.0) MCV 89.2 fl (80-100) MCH 29.7 pg (26-34) MCHC 33.3 g/dl (32-36) RDW 11.7 % (11.5-14.5) Plt Count 293 k/mm3 (150-375) MPV 10.2 fl (7.4-10.4) Immature Gran % (Auto) 0.2 % (0-0.5) Neut % (Auto) 73.5 H % (45.5-73.1) Lymph % (Auto) 18.9 % (18.3-44.2) [place] % (Auto) 6.3 % (2.6-8.5) Eos % (Auto) 0.7 % (0-4.4) Baso % (Auto) 0.4 % (0.2-1.2) Lymph # (Auto) 1.86 K/mm3 (0.9-3.2) [place] # (Auto) 0.6 K/mm3 (0.1-0.6) Eos # (Auto) 0.1 K/mm3 (0-0.3) Baso # (Auto) 0.0 K/mm3 (0.0-0.1) Abs Immat Gran (auto) 0.02 K/mm3 (0.00-0.031) Absolute Neuts (auto) 7.3 H K/mm3 (1.3-6.7) Absolute Nucleated RBC 0.000 K/mm3 (0.0-0.012) Nucleated RBC % 0.0 % (0.0-0.2) Sodium 139 mmol/L (137-145) Potassium 3.6 mmol/L (3.4-5.0) Chloride 105 mmol/L (98-107) Carbon Dioxide 27 mmol/L (22-30) Anion Gap 7 mmol/L (4-12) BUN 9 mg/dL (7-17) Creatinine 0.60 L mg/dL (0.7-1.0) Estim Creat Clear Calc 104 ml/min Estimated GFR > 60 (59 - ) Glucose 90 mg/dL (65-110) Calcium 9.0 mg/dL (8.4-10.2) Total Bilirubin 0.5 mg/dL (0.2-1.3) AST 26 U/L (14-36) ALT 27 U/L (6-35) Alkaline Phosphatase 85 U/L (38-126) Total Protein 8.0 g/dL (6.3-8.2) Albumin 4.8 g/dL (3.5-5.1) Lipase 47 U/L (23-300) Urine Color Yellow (Yellow) Urine Appearance Clear (Clear) Urine pH 6.5 (5.0-9.0) Ur Specific [place] 1.032 (1.001-1.035) Urine Protein Trace mg/dL (Negative) Urine Glucose (UA) Negative mg/dL (Negative) Urine Ketones Trace H mg/dL (Negative) Ur Blood (Man) Negative (Negative) Urine Nitrate Negative (Negative) Urine Bilirubin Negative (Negative) Urine Urobilinogen 1.0 mg/dL (<2.0) Leukocyte Esterase Rfl Negative ANN/UL (Negative) Urine RBC 0-2 /hpf (0-2) Urine WBC 0-5 /hpf (0-3) Ur Squamous Epith Cells Occasional /hpf (Few) Urine Bacteria 1+ H /hpf Urine Casts 0-2 Urine Test Negative Patient hx anesthesia problems: post op nausea/vomiting Family hx anesthesia problems: none Results Review: All pre-operative results and documents have been reviewed as part of the pre- operative evaluation. [facility] Past Medical History Medical History (Updated 07/15/24 @ 10:18 by Mauricio Lopez DO) Depression Mary-Danlos syndrome POTS (postural orthostatic tachycardia syndrome) Surgical History Surgical History No pertinent past surgical history Family History Family History Sibling Diabetes mellitus Father Mary-Danlos disease Social History Social History Smoking status: Never smoker Alcohol intake: never Substance use: never Do You Feel Safe in your Home?: Yes Lack of Transportation: No Lack of Food: Never True Current Housing: I Have Housing Concerned About Future Housing: No Difficulty Paying Gas/Electric Bills: No Difficulty Paying for Meds: No Currently Unemployed: No Education: High School Diploma/GED Difficulty w/ Childcare or Family Care: No Occupation/Education: occupation Additional occupation/education comments: [employer] Spiritual care concerns: No Anes - Eval Final PreProcedure Day of Procedure 07/15/24 10:53 Patient weight: normal Heart: regular rate and rhythm Lungs: clear to auscultation Airway: Mallampati scale class II Neurological: alert and oriented Last oral intake: >/= 8 hours ASA classification: III Emergent: yes Anesthetic plan: proceed Anesthesia type and monitoring: general ETT and standard monitoring Results Review: All pre-operative results and documents have been reviewed as part of the pre- operative evaluation. Informed Consent: The patient's anesthetic plan and its attendant risks and benefits were discussed with the patient/family/POA. Questions were solicited and answers provided to the satisfaction of the patient/family/POA.
[2024-07-15] MEDS: SCOPOLAMINE 1 MG PATCH 1 PATCH TRANSDERM (10:56)
[2024-07-15] MEDS: BUPivacaine HCL 0.5% PF 30 ML VIAL 15 ML INFILTRATE (11:27)
[2024-07-15] MEDS: LIDO 1%/EPINEPHRINE 1:100,000 20 ML VIAL 15 ML INFILTRATE (11:28)
--- NOTE | 2024-07-15 11:52 | P.OP_ITS ---
Procedure Note - Detailed Date of Procedure 07/15/24 Pre-op Diagnosis Acute appendicitis Post-op Diagnosis Same Procedure Performed Laparoscopic appendectomy Surgeon mEeka Macedo MD Bromination Equipment Operator VIRIDIAAN Aguilar Anesthesia General Indications Patient is a 23-year-old female who presented with severe lower abdominal pain for 1 day prior to presenting to the emergency room. She had a similar pain about 2 years ago and was discharged without and appendectomy. At that time she had a appendix which appeared to be normal but did have a appendicoliths within it. This time when she presented to the emergency room showed normal white blood cell count but a CT scan abdomen pelvis showed moderate dilation of the appendix to 11mm. This was enlarged from the prior CT scan. The appendicoliths was still in place. She was continued to have pain this morning so she presents now for an urgent laparoscopic appendectomy. Findings The appendix was dilated and mildly hyperemic. There is no gangrene or perforation. There is no fibropurulent exudate. The base of appendix appeared to be normal. Description of Procedure After informed consent was obtained patient brought to the operating room she was placed supine position and general endotracheal anesthesia was administered. The abdomen was then prepped and draped usual sterile fashion. A Mckeon catheter was placed decompress the bladder prior to prepping the patient. Orogastric tube was placed decompress the stomach. A time-out was then performed correctly identifying the patient as well as the procedure to be performed. She was already on scheduled IV antibiotics. I entered the abdomen left upper quadrant utilizing a 5mm Optiview port. Once inside the abdomen insufflated to adequate pneumoperitoneum of 15mmHg of CO2. There were no adhesions around the area the umbilicus and so I placed a 12mm periumbilical trocar port and then 5mm trocar ports in the right lower quadrant and the suprapubic regions. The appendix was then identified the pelvis. Laparoscopic instruments were then used to bring up the redundant cecum out of the pelvis and I could easily see that the appendix was dilated and mildly indurated with mild erythema. There was no gangrene or perforation of the appendix. There is no fibropurulent exudate. With a laparoscopic instrument was able to hold up the appendix and make a defect through the mesoappendix with a [place] dissector. A 45mm Endo-DALE stapler was then used to divide the appendix flush with the cecum. A vascular reload to the Endo-DALE stapler was then used to divide the mesoappendix. The appendix was then placed into an Endo-Catch bag and brought out through the epigastric port site. The the appendix was sent to pathology for examination. I then checked both staple lines and they were hemostatic. I then pulled the omentum down over the staple lines and then removed all the trocar ports under direct visualization. The ports were hemostatic. The abdomen was then allowed to decompress. I irrigated all the port sites sterile saline solution hemostasis was good. The 12mm periumbilical trocar port fascial defect was then closed utilizing 0 Vicryl suture placed in a figure-eight fashion. The skin edges in all the port sites were then approximated utilizing a running subcuticular 4-0 Monocryl suture. The incisions were then cleaned and then skin skin glue was applied. The Mckeon catheter was removed at the end the procedure. The patient tolerated the procedure well no complications. All sponges, needles, and instrument counts were correct at the end procedure. EBL was _10__cc. The patient was awakened and taken to recovery in stable and satisfactory condition. Implants None Estimated Blood Loss 10 Drains No Packing No Pathology Yes (Appendix to pathology) Complications No immediate complications Condition Stable Disposition PACU [facility] Billing Surgery - Charge Forward: Surgery Billing
[2024-07-15] MEDS: LACTATED RINGERS 1,000 ML 30 ML IV CONT (11:58)
[2024-07-15] MEDS: ONDANSETRON INJ 4 MG/2 ML VIAL IV PUSH (12:23)
[2024-07-15] MEDS: HYDROcodone/acetaminophen (*CRX) 5-325 MG TABLET 1 TAB PO (17:48)
--- NOTE | 2024-07-19 18:19 | P.DS_ITS ---
DS: Admitting Diagnosis Discharge Date 07/15/24 Admitting Diagnosis Acute appendicitis DS: Discharge Diagnosis Discharge Diagnosis (1) Acute appendicitis: Qualifiers: Acute appendicitis type: unspecified acute appendicitis type Qualified Code(s): K35.80 - Unspecified acute appendicitis Code(s): K35.80 - Unspecified acute appendicitis Status: Acute DS: Summary Hospital Course Reason for hospitalization: Acute appendicitis Hospital Course: Patient presented to the emergency room with complaints of having lower abdominal pain. Her white blood cell count was normal but a CT scan abdomen pelvis showed a dilated appendix which was dilated to a diameter of 11mm. There is some subtle periappendiceal, Monica changes on CT scan. Patient had a previous presentation with pain about 2 years ago a similar circumstance. At that time she was noted to have appendicoliths in the appendix. She was thought to have colitis during that admission and she did not have an appendectomy. The CT scan again demonstrated the appendicoliths on this visit. I discussed with the patient and she may have early acute appendicitis and that the appendicoliths were still present. These appendicoliths were a risk factor for recurring appendicitis. She want to proceed with a laparoscopic appendectomy. Later in the morning the patient went to the operating room she underwent uncomplicated laparoscopic appendectomy. Postoperatively she her course recovery room was uneventful she was transferred back to the surgical floor. One surgical floor she did well was able to get up and ambulate and go to the bathroom on her own. She urinate spontaneously. Her pain was well controlled on oral pain medic ations. Her diet was advanced as tolerated she tolerated solid food. She was then discharged home in improved condition. Her pain was much improved aside from some soreness around the port sites. She was tolerating regular diet and was afebrile. Discharge instructions were given to her and will follow-up see me in the office in about 2 weeks. Status at Discharge Functional status at discharge: independent ambulation Overall status at discharge: patient is back to baseline Time Spent with Patient Time attestation: Total time spent providing and/or coordinating discharge services: Time spent: Less than 30 minutes Exam GI: Other: Abdomen is soft and nondistended. Port site incisions are healing well. No redness or drainage. Minor tenderness around the port sites. Suprapubic and right lower quadrant abdominal pain had resolved. DS: Data Data Completed and Pending Completed studies during hospitalization: Pending at discharge 07/15/24 11:30 Surgical [PTH] Routine Discharge Plan Discharge Attending physician on discharge: Emeka Macedo Consulting providers: Austin Odell; Lev Guzman V.; Mauricio Lopez Discharging Clinician: Emeka Macedo Anticipated Discharge Date/Time: 07/15/24 18:00 Patient Disposition: Home, Self-Care Activity: may shower Diet: regular Wound Care Instructions: other - see discharge instructions Discharge Instructions: May discharge home when stable. Follow up with Dr. Macedo in the office in 2 weeks. Patient to call [phone] for an appointment. May shower in 24hours but do not soak incisions under water for 2 weeks. No lifting more than 10 to 15 lb for 2 weeks. May advance diet as tolerated. No driving for at least 3 days or until no longer taking any narcotic pain medication. Resume all home medications. Prescription for narcotic pain medicines will be sent to the patient's pharmacy if needed. May use Tylenol and/or ibuprofen in addition to or in place of narcotic pain medications for postoperative pain. Patient may discharge this evening if up walking in hallways and bathroom without difficulty. Pain needs to be controlled only with non narcotic or narcotic oral pain medications. Incision should be clean and dry. Patient should be tolerating solid food. Patient Instructions: Antibiotic Form Stand Alone Forms: General Discharge Information Follow-up/Referrals: Emeka Macedo MD [Physician] - Discharge Medications: Continued fluoxetine 60 mg Tablet 60 mg PO HS metoprolol tartrate 25 mg tablet 25 mg PO BID Date of admission: 07/15/24 01:00 Primary Care Provider: Russ Marx Admitting Provider: Emeka Maceod Attending physician on admission: Emeka Macedo Condition: Stable
== END 2024-07-15 18:32 | disposition home or self-care (01) ==
LOC: ANHED 07-15 00:59 → ANH3MED 07-15 01:25
PROVIDERS: Admitting Provider Surgery; Emergency Provider Physician Assistant; Visit Provider Surgery
PROC: 0DTJ4ZZ Resection of Appendix, Percutaneous Endoscopic Approach (ICD-10-PCS; CPT 44970; principal; 2024-07-15 11:00)
DX: K35.80 Unspecified acute appendicitis (principal); F32.A Depression, unspecified
CPT/HCPCS: 44970; 36415; 74177; 76830; 80053; 81001; 81025; 83690; 85025; 88304; 96361; 96365; 96374; 96375; 96376; 99285; A9270; G0378; J0330; J1100; J1171; J1200; J1885; J2003; J2004; J2250; J2405; J2543; J2704; J3010; J7030; J7120; Q9967